=== PATIENT | female | born 1940 | race Caucasian/White ===

== ENCOUNTER → 2016-09-11 | Outpatient (CLI) | payer MEDICARE, BC ==
[~2016-09-11] MED LIST: ACETAMINOPHEN; ACETAMINOPHEN PO; ALPRAZOLAM PO; AMBIEN PO; ASPIRIN81 M1 PO; ASPIRIN81 MG PO; ATIVAN0.5 MG PO; CARAFATE1 G PO; CELEXA20 MG PO; CIPRO PO; CLOPIDOGREL BIS75 MG PO; CLOPIDOGREL75 MG PO; CRESTOR PO; CRESTOR5 MG PO; FLEXERIL10 MG PO; IBUPROFEN PO; LEVAQUIN PO; LEVAQUIN250 MG PO; LIPITOR; LORAZEPAM1 MG; MACROBID100 M1 PO; METRONIDAZOLE PO; MIRAPEX0.25 MG PO; MUCUS DM MAX T1 EACH PO; MULTI-VITAMIN1 TAB; NAPROSYN500 MG PO; NEURONTIN100 MG PO; NEURONTIN300 MG PO; NEXIUM PO; PANTOPRAZOLE SO40 MG; PANTOPRAZOLE SO40 MG PO; PHENERGAN SUPP25 M1; PHENERGAN25 M1 DOB; PHENERGAN25 M1 PO; PHENERGAN25 MG PO; PRAMIPEXOLE0.125 MG PO; PREDNISONE10 MG PO; PROTONIX PO; REQUIP1 MG PO; RESTORIL7.5 MG PO; RLS MED PO; SYNTHROID PO; SYNTHROID25 MCG PO; TRIMPEX100 MG; TYLENOL ALLERGY1 T11 PO; URIBEL CAPSULE1 EAC1 PO; VIT E PO; VITAMIN C PO; ZOFRAN ODT4 M1; ZOFRAN ODT4 MG; ZOFRAN PO; ZOFRANODT PO; ZOLOFT50 MG PO
--- NOTE | ~2016-09-11 | MY11 ---
[facility] A Service of [facility] RADIOLOGY TEXT RESULTS PATIENT: FAVIAN MUNIZ LOCATION: [facility] : 42 UNIT #: [id number] AGE: [address]: Mitali Lopez LACE BURN OUT TENDER SEX: F ORDER DR: [id number] [address] [address] [id number] O MR#: [id number] Acc #: [id number] NAME: FAVIAN MUNIZ : 1940 SEX: F STUDY DATE/TIME: 09/11/2016 10:42 UNIT: [facility] ROOM: STUDY DESCRIPTION: MY Mammogram Screening Dig Juan Attending Physician: Mitali Lopez A.P.R.N. Referring Physician: Mitali Lopez A.P.R.N. Ordering Physician: Mitali Lopez A.P.R.N. Primary Care Physician: Mitali Lopez A.P.R.N. MEDICAL IMAGING REPORT This report is preliminary unless electronic signature is present. EXAM Bilateral digital screening mammogram with CAD, 09/11/2016 INDICATION 76-year-old female for routine screening. No reported problems and no personal or family history of breast cancer. History of excisional biopsies, benign on the right x2. TECHNIQUE CC and MLO views were obtained and reviewed with an FDA-approved CAD device. COMPARISON 08/13/2015, 08/03/2014, 07/10/2013 FINDINGS Breast parenchyma is heterogeneously dense. This degrades sensitivity of screening mammography. The pattern is unchanged. Scar markers and mole markers are present. There is no new dominant nodule or mass in either breast. No new suspicious cluster of microcalcifications. Benign vascular and dystrophic calcifications are present. IMPRESSION Benign screening mammogram. One year followup recommended. Patients over the age of 40 are entered into a reminder system with target due date for the next mammogram. A result letter will also be sent to the patient. BIRADS: 2 Benign Finding Dictated by... Darwin Castro M.D. [facility] A Service [facility] RADIOLOGY TEXT RESULTS PATIENT: FAVIAN MUNIZ LOCATION: [facility] : 42 UNIT #: [id number] AGE: [address]: Mitali Lopez SEX: F ORDER DR: THIS IS AN ELECTRONICALLY VERIFIED REPORT Darwin Castro M.D. at 09/11/2016 3:39 PM Simon TD: 09/11/2016 14:29 JOB #: [id number] MEDICAL IMAGING REPORT
== END | disposition home or self-care (01) ==
LOC: SMAM 10:04
DX: Z12.31 Encounter for screening mammogram for malignant neoplasm of breast (principal); Z98.890 Other specified postprocedural states
CPT/HCPCS: G0202

== ENCOUNTER → 2016-09-25 | Outpatient (CLI) | payer MEDICARE, BC ==
--- NOTE | ~2016-09-25 | BD1 ---
[facility] A Service [facility] RADIOLOGY TEXT RESULTS PATIENT: FAVIAN MUNIZ LOCATION: [facility] : 41 UNIT #: [id number] AGE: [address]: Dolores Maynard MD SEX: F ORDER DR: [id number] [address] [address] [id number] O MR#: [id number] Acc #: [id number] NAME: FAVIAN MUNIZ : 1940 SEX: F STUDY DATE/TIME: 09/25/2016 8:48 UNIT: [facility] ROOM: STUDY DESCRIPTION: Dexa Bone Dens 1+ Site Attending Physician: Dolores Maynard M.D. Ordering Physician: Dolores Maynard M.D. Primary Care Physician: Mitali Lopez A.P.R.N. MEDICAL IMAGING REPORT This report is preliminary unless electronic signature is present. EXAM DXA scan, 09/25/2016. HISTORY Status post menopause with no hormone replacement therapy. Osteopenia. FINDINGS Bone mineral density in the lumbar spine from L1-L4 is 1.041 g/cm2 which is 1.2 standard deviations below the mean when compared to the young adult reference population which is characteristic of osteopenia. This is 0.3 standard deviations above the mean when compared to the age-matched population. Bone mineral density in the left femoral neck was 0.659 g/cm2 which is 2.7 standard deviations below the mean when compared to the young adult reference population which is characteristic of osteoporosis. This is 1 standard deviation below the mean when compared to the age-matched population. Bone mineral density in the right femoral neck was 0.695 g/cm2 which is 2.5 standard deviations below the mean when compared to the young adult reference population which is characteristic of osteoporosis. This is 0.7 standard deviations below the mean when compared to the age-matched population. IMPRESSION Bone mineral density in the lumbar spine characteristic of osteopenia and within the hips bilaterally characteristic of osteoporosis. Dictated by... [facility] RADIOLOGY TEXT RESULTS PATIENT: FAVIAN MUNIZ LOCATION: [facility] : 42 UNIT #: [id number] AGE: [address]: Dolores Maynard MD SEX: F ORDER DR: Deniz Bates M.D. THIS IS AN ELECTRONICALLY VERIFIED REPORT Deniz Bates M.D. at 09/25/2016 5:48 PM KRT/coco TD: 09/25/2016 13:58 JOB #: [id number] MEDICAL IMAGING REPORT
== END | disposition home or self-care (01) ==
LOC: SRAD 08:25
DX: M81.0 Age-related osteoporosis without current pathological fracture (principal)
CPT/HCPCS: 77080

== ENCOUNTER → 2016-11-23 | Outpatient (CLI) | payer MEDICARE, BC ==
--- NOTE | ~2016-11-23 | CT71 ---
[facility] A Service of [facility] RADIOLOGY TEXT RESULTS PATIENT: FAVIAN MUNIZ [facility] UNIT #: [id number] AGE: [address]: Dolores Maynard MD SEX: F ORDER DR: [id number] [facility]. [place], [place] [address] [id number] O MR#: [id number] Acc #: [id number] NAME: FAVIAN MUNIZ : 1940 SEX: F STUDY DATE/TIME: 11/23/2016 12:22 UNIT: [facility] ROOM: STUDY DESCRIPTION: CT Head Wo Contrast Attending Physician: Dolores Maynard M.D. Referring Physician: Dolores Maynard M.D. Ordering Physician: Dank Maynard M.D. Primary Care Physician: Dolores Maynard M.D. MEDICAL IMAGING REPORT This report is preliminary unless electronic signature is present EXAM CT head without contrast INDICATIONS Headache with nausea for [address] images were obtained from vertex to skull through skull base. No intravenous contrast was administered. The CT exam was performed with one or more of the following radiation dose reduction techniques: automatic exposure control, adjustment of mA and/or kV according to patient size, and iterative reconstruction. COMPARISON: Comparison made to a prior exam from June 14, 2016. No acute cranial hemorrhage is identified. There is a large area of encephalomalacia seen within the right temporal lobe as well as cerebellar atrophy. This appearance is stable when compared to the exam from June 14, 2016. There is no midline shift or mass effect. No new areas of decreased attenuation are identified. Patient is status post right frontal craniotomy. Mucosal thickening identified within the right maxillary sinus. Mastoid air cells appear clear. There are also changes of right temporal craniotomy as well. No aggressive osseous abnormalities are seen. I do not see any focal soft tissue abnormalities. IMPRESSION 1. No acute intracranial process is identified. Specifically, there is no evidence of acute hemorrhage, mass lesion or acute infarct. [facility] A Service of [facility] RADIOLOGY TEXT RESULTS PATIENT: FAVIAN MUNIZ [id number] 42 UNIT #: [id number] AGE: [address]: Dolores Maynard MD SEX: F ORDER DR: Patient does have a large area of encephalomalacia within the right temporal lobe and is status post both the right frontal and right temporal craniotomies. 2. Advanced and atrophy of the cerebellum hemispheres was also identified in June 2016. Dictated by... Megha Barker M.D. THIS IS AN ELECTRONICALLY VERIFIED REPORT Megha Barker M.D. at 11/23/2016 4:50 PM QUINTIN/darlene TD: 11/23/2016 15:05 JOB #: [id number] MEDICAL IMAGING REPORT Page 1 of 1 COPY
== END | disposition home or self-care (01) ==
LOC: CCAT 12:12
DX: R51 Headache (principal); R11.0 Nausea; G93.89 Other specified disorders of brain; G31.9 Degenerative disease of nervous system, unspecified; Z98.890 Other specified postprocedural states
CPT/HCPCS: 70450

== ENCOUNTER 2016-11-28 18:39 | Emergency (ER) | payer MEDICARE, BC ==
[~2016-11-28 18:39] MED LIST changes: -CLOPIDOGREL BIS75 MG PO; -CRESTOR5 MG PO; -MACROBID100 M1 PO; -NEURONTIN100 MG PO; -PANTOPRAZOLE SO40 MG PO; -RESTORIL7.5 MG PO; -ZOFRAN ODT4 M1
[2016-11-28 19:58] LABS: BASOPHIL% 0.6 % (0-2.5); DIFF IND NO; EOSINOPHIL% 0.1 % (0.0-7.0); HEMATOCRIT 41.6 % (35.0-45.0); LYMPHOCYTE% 16.4 % (17.0-45.0); MEAN CELL VOLUME 92.1 FL (83-96); MEAN CORPUSCULAR HGB CONC 33.7 g/dL (30-36); MEAN PLATELET VOLUME 8.1 FL (6.5-11.5); MONOCYTE# 0.5 X10e3 (0-1.0); MONOCYTE% 7.5 % (3.0-12.0); NEUTROPHIL# 4.5 X10e3 (1.5-7.1); NEUTROPHIL% 75.4 % (40-75); PLATELET COUNT 307 X10e3 (140-420); RED BLOOD COUNT 4.52 X10e (3.90-5.30); RED CELL DISTRIBUTION WIDTH 14.9 % (11.0-15.5)
[2016-11-28 20:12] LABS: ALBUMIN SERUM 3.9 g/dL (3.5-5.0); ALKALINE PHOSPHATASE 70 U/L (32-92); ALT (SGPT) 11 U/L (10-40); AST (SGOT) 17 U/L (10-42); BILIRUBIN,TOTAL 0.4 mg/dL (0.2-2.0); BLOOD UREA NITROGEN 13 mg/dL (9-23); BUN/CREATININE RATIO 14.44; CALCIUM SERUM 9.5 mg/dL (8.4-10.2); CARBON DIOXIDE 27 mmol/L (22-31); CHLORIDE 104 mmol/L (100-111); CREATININE SERUM 0.9 mg/dL (0.6-1.4); GLOM FILT RATE Estimated 62.6 mL/min (>60); GLUCOSE FASTING 100 mg/dL (70-110); LIPASE 16 U/L (22-51); POTASSIUM 4.3 mmol/L (3.5-5.1); PROTEIN TOTAL SERUM 7.8 g/dL (6.0-8.3); SODIUM 141 mmol/L (135-145)
[2016-11-28 20:14] LABS: BILIRUBIN, DIRECT <0.1 mg/dL (0.0-0.2); BILIRUBIN,INDIRECT 0.3 mg/dL (0.0-0.9)
[2016-11-28 20:34] LABS: URINE SOURCE CLEAN CATCH
[2016-11-28 20:36] LABS: URINE APPEARANCE HAZY; URINE BILIRUBIN NEG (NEG); URINE BLOOD TRACE-LYSED (NEG); URINE COLOR YELLOW; URINE GLUCOSE NEG (NORM); URINE KETONE NEG (NEG); URINE LEUKOCYTE ESTERASE 1+ (NEG); URINE NITRATE POS (NEG); URINE PROTEIN NEG (NEG)
[2016-11-28 20:37] LABS: MICRO INDICATED? YES
[2016-11-28 20:40] LABS: CULTURE INDICATED? YES; URINE BACTERIA 2+ (NEG); URINE RBC 0-2 /[HPF] (0-2)
[2016-11-28 20:41] LABS: URINE MUCUS PRESENT; URINE SQUAMOUS EPITHELIAL CELL OCCAS /[HPF]; URINE TRANSITIONAL EPI CELLS OCCAS /[HPF]
== END 2016-11-28 21:36 | disposition home or self-care (01) ==
LOC: SED 18:39
PROVIDERS: Emergency Medicine
DX: N39.0 Urinary tract infection, site not specified (principal); R11.2 Nausea with vomiting, unspecified; F41.9 Anxiety disorder, unspecified; K21.9 Gastro-esophageal reflux disease without esophagitis; G25.81 Restless legs syndrome
CPT/HCPCS: 36415; 80048; 80076; 81003; 82947; 83690; 85025; 87086; 87088; 87186; 96361; 96374; 96375; 99284; C9113; J1885; J2405

== ENCOUNTER 2016-12-01 14:14 | Emergency (ER) | payer MEDICARE, BC ==
--- NOTE | ~2016-12-01 | EKG ---
PATIENT: FAVIAN MUNIZ UNIT #: [id number] Ventricular Rate: 79 BPM Atrial Rate: 79 BPM P-R Interval: 148 ms QRS Duration: 74 ms Q-T Interval: 392 ms QTC Calculation(Bezet): 449 ms P [place]: 37 degrees Calculated R [place]: 1 degrees Calculated T [place]: 31 degrees Diagnosis Line: Normal sinus rhythm Diagnosis Line: Normal ECG Diagnosis Line: When compared with ECG of 26-APR-2014 21:12, Diagnosis Line: ST elevation now present in Inferior leads Diagnosis Line: Nonspecific T wave abnormality has replaced Diagnosis Line: inverted T waves in Inferior leads Diagnosis Line: Confirmed by HORTENCIA ALEX MD ([id number]) on 12/03/2016 Diagnosis Line: 5:47:38 PM INTERPRETING MD: ISAI VILLAREAL
[2016-12-01] MEDS ORDERED: NEURONTIN100 MG PO (14:18)
[2016-12-01] MEDS ORDERED: ZOFRAN ODT4 M1 (14:18)
[2016-12-01] MEDS ORDERED: CRESTOR5 MG PO (14:19)
[2016-12-01] MEDS ORDERED: PANTOPRAZOLE SO40 MG PO (14:19)
[2016-12-01] MEDS ORDERED: MACROBID100 M1 PO (14:19)
[2016-12-01] MEDS ORDERED: RESTORIL7.5 MG PO (14:20)
[2016-12-01] MEDS ORDERED: CLOPIDOGREL BIS75 MG PO (14:20)
[2016-12-01 15:29] LABS: BASOPHIL# 0.1 X10e3 (0-0.3); EOSINOPHIL% 0.1 % (0.0-7.0); HEMATOCRIT 41.3 % (35.0-45.0); HEMOGLOBIN 13.8 gm/dL (12.0-16.0); LYMPHOCYTE# 0.8 X10e3 (1.0-3.5); LYMPHOCYTE% 13.3 % (17.0-45.0); MEAN CELL VOLUME 91.1 FL (83-96); MEAN CORPUSCULAR HEMOGLOBIN 30.5 PG (28-34); MEAN CORPUSCULAR HGB CONC 33.4 g/dL (30-36); MEAN PLATELET VOLUME 7.8 FL (6.5-11.5); MONOCYTE# 0.3 X10e3 (0-1.0); MONOCYTE% 4.6 % (3.0-12.0); PLATELET COUNT 375 X10e3 (140-420); RED BLOOD COUNT 4.54 X10e (3.90-5.30); RED CELL DISTRIBUTION WIDTH 14.8 % (11.0-15.5); WHITE BLOOD COUNT 6.1 X10e3 (4.0-10.5)
[2016-12-01 15:31] LABS: DIFF IND NO
[2016-12-01 15:48] LABS: POC - CKMB <1.0 ng/mL (0.0-7.9); POC - TROPONIN <0.05 ng/mL (<=0.05)
[2016-12-01 15:48] LABS: ALBUMIN SERUM 3.7 g/dL (3.5-5.0); BILIRUBIN, DIRECT 0.1 mg/dL (0.0-0.2); BILIRUBIN,INDIRECT 0.3 mg/dL (0.0-0.9); BILIRUBIN,TOTAL 0.4 mg/dL (0.2-2.0); CALCIUM SERUM 8.9 mg/dL (8.4-10.2); CREATININE SERUM 0.6 mg/dL (0.6-1.4); GLOM FILT RATE Estimated 89.2 mL/min (>60); PROTEIN TOTAL SERUM 7.1 g/dL (6.0-8.3)
== END 2016-12-01 16:49 | disposition home or self-care (01) ==
LOC: SED 14:14
PROVIDERS: Emergency Medicine
DX: R11.0 Nausea (principal); K21.9 Gastro-esophageal reflux disease without esophagitis; G25.81 Restless legs syndrome; Z88.8 Allergy status to other drugs, medicaments and biological substances; Z79.899 Other long term (current) drug therapy
CPT/HCPCS: 36415; 80048; 80076; 82553; 83690; 84484; 85025; 93005; 96361; 96374; 99284; J2405

== ENCOUNTER 2016-12-14 13:17 | Emergency (ER) | payer MEDICARE, BC ==
--- NOTE | ~2016-12-14 | EKG ---
PATIENT: FAVIAN MUNIZ UNIT #: [id number] Ventricular Rate: 81 BPM Atrial Rate: 81 BPM P-R Interval: 156 ms QRS Duration: 66 ms Q-T Interval: 372 ms QTC Calculation(Bezet): 432 ms P [place]: 64 degrees Calculated R [place]: -7 degrees Calculated T [place]: 12 degrees Diagnosis Line: Normal sinus rhythm Diagnosis Line: Normal ECG Diagnosis Line: When compared with ECG of 01-DEC-2016 14:45, Diagnosis Line: No significant change was found Diagnosis Line: Confirmed by GARIMA NOBLE MD ([id number]) on Diagnosis Line: 12/16/2016 10:51:23 AM INTERPRETING MD: REAL VILLAREAL
[~2016-12-14 13:17] MED LIST changes: +CLOPIDOGREL BIS75 MG PO; +CRESTOR5 MG PO; +MACROBID100 M1 PO; +NEURONTIN100 MG PO; +PANTOPRAZOLE SO40 MG PO; +RESTORIL7.5 MG PO; +ZOFRAN ODT4 M1
[2016-12-14 14:39] LABS: POC - CKMB <1.0 ng/mL (0.0-7.9); POC - TROPONIN <0.05 ng/mL (<=0.05)
[2016-12-14 14:41] LABS: BASOPHIL% 0.6 % (0-2.5); DIFF IND NO; EOSINOPHIL% 0.1 % (0.0-7.0); HEMATOCRIT 43.8 % (35.0-45.0); HEMOGLOBIN 14.7 gm/dL (12.0-16.0); LYMPHOCYTE% 13.7 % (17.0-45.0); MEAN CELL VOLUME 92.3 FL (83-96); MEAN CORPUSCULAR HEMOGLOBIN 30.9 PG (28-34); MEAN CORPUSCULAR HGB CONC 33.5 g/dL (30-36); MEAN PLATELET VOLUME 9.7 FL (6.5-11.5); MONOCYTE# 0.3 X10e3 (0-1.0); MONOCYTE% 4.1 % (3.0-12.0); NEUTROPHIL# 6.1 X10e3 (1.5-7.1); NEUTROPHIL% 81.5 % (40-75); PLATELET COUNT 269 X10e3 (140-420); RED BLOOD COUNT 4.75 X10e (3.90-5.30); RED CELL DISTRIBUTION WIDTH 15.2 % (11.0-15.5); WHITE BLOOD COUNT 7.5 X10e3 (4.0-10.5)
[2016-12-14 15:33] LABS: URINE SOURCE CLEAN CATCH
[2016-12-14 15:43] LABS: URINE APPEARANCE CLEAR; URINE BLOOD NEG (NEG); URINE COLOR YELLOW; URINE GLUCOSE NEG (NORM); URINE LEUKOCYTE ESTERASE 1+ (NEG); URINE NITRATE NEG (NEG); URINE PROTEIN NEG (NEG); URINE UROBILINOGEN 0.2 MG/DL (NORM)
[2016-12-14 15:47] LABS: URINE BILIRUBIN NEG (NEG)
[2016-12-14 15:48] LABS: MICRO INDICATED? YES; URINE KETONE 2+ (NEG)
[2016-12-14 15:57] LABS: ALBUMIN SERUM 4.2 g/dL (3.5-5.0); BILIRUBIN, DIRECT 0.2 mg/dL (0.0-0.2); BILIRUBIN,INDIRECT 0.7 mg/dL (0.0-0.9); BILIRUBIN,TOTAL 0.9 mg/dL (0.2-2.0); BUN/CREATININE RATIO 24.28; CALCIUM SERUM 9.1 mg/dL (8.4-10.2); CREATININE SERUM 0.7 mg/dL (0.6-1.4); GLOM FILT RATE Estimated 84.8 mL/min (>60); MAGNESIUM 2.1 mg/dL (1.6-3.0); POTASSIUM 3.4 mmol/L (3.5-5.1); PROTEIN TOTAL SERUM 7.6 g/dL (6.0-8.3)
[2016-12-14 16:23] LABS: CULTURE INDICATED? YES; URINE BACTERIA 2+ (NEG); URINE RBC 0-2 /[HPF] (0-2); URINE SQUAMOUS EPITHELIAL CELL MANY /[HPF]; URINE TRANSITIONAL EPI CELLS FEW /[HPF]
[2016-12-14 16:24] LABS: URINE MUCUS PRESENT
== END 2016-12-14 17:34 | disposition home or self-care (01) ==
LOC: SED 13:17
PROVIDERS: Student in an Organized Health Care Education/Training Program
DX: E86.0 Dehydration (principal); I10 Essential (primary) hypertension; E78.5 Hyperlipidemia, unspecified; Z79.899 Other long term (current) drug therapy; Z79.891 Long term (current) use of opiate analgesic; Z88.8 Allergy status to other drugs, medicaments and biological substances
CPT/HCPCS: 36415; 80048; 80076; 81003; 82553; 83735; 84484; 85025; 87086; 93005; 96360; 96361; 99284